=== PATIENT | female | born 1990 | race Caucasian/White ===

== ENCOUNTER → 2023-09-21 | Outpatient (CLI) | payer MEDICAID ==
--- NOTE | 2023-09-21 15:35 | US ---
EXAMINATION TYPE: US axilla RT DATE OF EXAM: 09/21/2023 COMPARISON: NONE CLINICAL INDICATION: Female, 32 years old with history of R22.9 LOCALIZED SWELLING, MASS AND LUMP, UN SPECIFIED; hard palpable right axilla. Hx of loose skin removal TECHNIQUE: Targeted scanning along the right axilla at the patient's palpable, protuberant lump. 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 The exact etiology is unclear. IMPRESSION: Vague heterogeneous area at the palpable area in the right axilla measuring 2.6 cm. Possi ble scar tissue. This does not have the typical appearance of a mass. It does not represent an abnorm al lymph node. Clinical follow-up is recommended. If the area persists or enlarges, tissue sampling e ither via ultrasound guidance in radiology or via palpation by surgery can be considered.
== END | disposition home or self-care (01) ==
LOC: RADUSWWP 14:50
PROVIDERS: ATTEND Radiology Radiation Oncology
DX: R22.9 Localized swelling, mass and lump, unspecified (principal)